=== PATIENT | female | born 1965 | race Two or more races ===

== ENCOUNTER 2025-01-28 16:33 | Emergency (ER) | payer OTHER ==
--- NOTE | 2025-01-28 17:07 | ED.PDOC ---
General HPI Comments This is a 59 year old female presenting to the ED with chief complaint of flank pain. Patient reports that she has been experiencing left sided flank pain with associated nausea and radiation of pain to her LUQ and left upper back since Saturday. Patient relays that her pain is currently an 8/10. Patient denies any vomiting, dysuria, hematuria, fever, or chills. Chief Complaint: Flank Pain Time Seen by MD: 17:04 Reviewed notes: Nurses Notes, Medications, Allergies Allergies: Coded Allergies: Penicillins (Verified Allergy, Unknown, 01/28/25) Home Meds Active Scripts Tramadol HCl (Tramadol HCl) 50 Mg Tab, 50 MG PO Q8HP PRN, #10 TAB Prov:ZHENG GAVIRIA MD 01/28/25 Ciprofloxacin Hcl (Cipro) 500 Mg Tab, 1 TAB PO BID, #14 TAB Prov:ZHENG GAVIRIA MD 01/28/25 Information Source: Patient Mode of Arrival: Ambulatory Severity: Moderate Timing: Days Duration: Since onset Prehospital treatment: None Onset: Spontaneous Symptoms: None History of: None Location: (L)Flank associated signs and symptoms: Nausea, Flank Pain Past Medical History PAST MEDICAL HISTORY: Denies Surgical History: Appendectomy 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 History Family History Family History: Reviewed,noncontributory to illness Social History Smoker: Non-Smoker Alcohol: Denies ETOH Use Drugs: Denies Drug Use Lives In: Home Constitutional: denies: chills, diaphoresis, fatigue, fever, malaise, sweats, weakness, others EENTM: denies: blurred vision, double vision, ear bleeding, ear discharge, ear drainage, ear pain, ear ringing, eye pain, eye redness, hearing loss, mouth pain, mouth swelling, nasal discharge, nose bleeding, nose congestion, nose pain, photophobia, tearing, throat pain, throat swelling, voice changes, others Respiratory: denies: cough, hemoptysis, orthopnea, SOB at rest, shortness of breath, SOB with excertion, stridor, wheezing, others Cardiovascular: denies: chest pain, dizzy spells, diaphoresis, Dyspnea on exertion, edema, irregular heart beat, left arm pain, lightheadedness, palpitations, PND, syncope, others Gastrointestinal: reports: nausea; denies: abdomen distended, abdominal pain, blood streaked bowels, constipated, diarrhea, dysphagia, difficulty swallowing, hematemesis, melena, poor appetite, poor fluid intake, rectal bleeding, rectal pain, vomiting, others Genitourinary: reports: flank pain; denies: abnormal vagina bleeding, burning, dyspareunia, dysuria, frequency, hematuria, incontinence, pain, , vagina discharge, urgency, others Neurological: denies: dizziness, fainting, headache, left sided numbness, left sided weakness, numbness, paresthesia, pre-existing deficit, right sided numbness, right sided weakness, seizure, speech problems, tingling, tremors, weakness, others Musculoskeletal: denies: back pain, gout, joint pain, joint swelling, muscle pain, muscle stiffness, neck pain, others Integumetry: denies: bruises, change in color, change in hair/nails, dryness, laceration, lesions, lumps, rash, wounds, others Allergic/Immunocompromised: denies: Difficulty Healing, Frequent Infections, Hives, Itching, others Hematologic/Lymphatic: denies: anemia, blood clots, easy bleeding, easy bruising, swollen glands, others Endocrine: denies: excessive hunger, excessive sweating, excessive thirst, excessive urination, flushing, intolerance to cold, intolerance to heat, unexplained weight gain, unexplained weight loss, others Psychiatric: denies: anxiety, bipolar disorder, depression, hopeless, panic disorder, schizophrenia, sleepless, suicidal, others All Other Systems: Reviewed and Negative Physical Exam General Appearance: Mild Distress HEENT: Normal ENT Inspection, Pharynx Normal, TMs Normal Neck: Full Range of Motion, Non-Tender, Normal, Normal Inspection Respiratory: Chest Non-Tender, Lungs Clear, No Accessory Muscle Use, No Respiratory Distress, Normal Breath Sounds Cardiovascular: No Edema, No JVD, No Murmur, No Gallop, Normal Peripheral Pulses, Regular Rate/Rhythm Breast Exam: Deferred Gastrointestinal: No Organomegaly, Non Tender, No Pulsatile Mass, Normal Bowel Sounds, Soft Genitalia: Deferred Pelvic: Deferred Rectal: Deferred Extremities: No calf tenderness, Normal capillary refill, Normal inspection, Normal range of motion, Non-tender, No pedal edema Musculoskeletal : Location: Left Extremity Location: Back Apperance: Tenderness: Mild Neurologic: Alert, treating machine operator II-XII nml as Tested, No Motor Deficits, Normal Affect, Normal Mood, No Sensory Deficits Cerebellar Function: Normal Reflexes: Normal Skin: Dry, Normal Color, Warm Lymphatic: No Adenopathy Was a procedure done? Was a procedure done?: No Differential Diagnosis Kidney stone (Female): Pyelonephritis, Urinary obstruction, Urolithiasis Urinary Problem (Female): UTI X-Ray, Labs, Meds, VS Vital Signs Date Time Temp Pulse Resp B/P (MAP) Pulse Ox O2 Delivery O2 Flow Rate FiO2 01/28/25 18:41 83 17 138/72 01/28/25 18:11 82 17 143/64 01/28/25 17:58 98.2 70 18 143/64 (90) 100 98.2 01/28/25 16:34 97.5 86 18 160/81 96 97.5 Lab Test 01/28/25 18:48 01/28/25 18:10 Range/Units Urine Color Light-yellow Yellow Urine Clarity Clear Clear Urine pH 6.5 5.0-9.0 Urine Specific [place] 1.020 1.001-1.035 Urine Protein Negative Negative Urine Ketones Negative Negative Urine Blood Trace H Negative /uL Urine Nitrite Negative Negative Urine Bilirubin Negative Negative Urine Urobilinogen Normal Negative mg/dL Urine Leukocyte Esterase 3+ Negative /uL Urine RBC 2 0 - 4 /hpf Urine Microscopic WBC 4 0-5 /HPF Urine Squamous Epithelial Cells Few <5 /hpf Urine Bacteria None seen None Seen /hpf Urine Glucose Normal Normal mg/dL White Blood Count 5.1 4.4-10.8 10^3/uL Red Blood Count 4.65 4.0-5.20 10^6/uL Hemoglobin 13.5 12.2-16.2 g/dL Hematocrit 39.3 36.0-46.0 % Mean Corpuscular Volume 84.5 80.0-100.0 fL Mean Corpuscular Hemoglobin 28.9 28.0-32.0 pg Mean Corpuscular Hemoglobin Concent 34.3 32.0-36.0 g/dL Red Cell Distribution Width 14.0 11.8-14.3 % Platelet Count 243 140-450 10^3/uL Mean Platelet Volume 7.6 6.9-10.8 fL Neutrophils (%) (Auto) 62.2 37.0-80.0 % Lymphocytes (%) (Auto) 27.5 10.0-50.0 % Monocytes (%) (Auto) 7.3 0.0-12.0 % Eosinophils (%) (Auto) 2.4 0.0-7.0 % Basophils (%) (Auto) 0.6 0.0-2.0 % Neutrophils # (Auto) 3.2 1.6-8.6 10 ^3/uL Lymphocytes # (Auto) 1.4 0.4-5.4 10 ^3/uL Monocytes # (Auto) 0.4 0-1.3 10 ^3/uL Eosinophils # (Auto) 0.1 0-0.8 10 ^3/uL Basophils # (Auto) 0 0-0.2 10 ^3/uL Nucleated Red Blood Cells 0.1 % Sodium Level 141 136-145 mmol/L Potassium Level 3.8 3.5-5.1 mmol/L Chloride Level 104 98-107 mmol/L Carbon Dioxide Level 29 20-31 mmol/L Anion Gap 8 5-15 Blood Urea Nitrogen 15 9-23 mg/dL Creatinine 1.15 H 0.550-1.02 mg/dL Glomerular Filtration Rate Calc 55 >90 mL/min BUN/Creatinine Ratio 13.0 10.0-20.0 Serum Glucose 99 74-106 mg/dL Calcium Level 9.2 8.7-10.4 mg/dL Current Medications Medications (Trade) Dose Ordered Sig/Dafne Route Start Time Stop Time Status Last Admin Ondansetron HCl (Zofran) 4 mg ONCE ONCE IV 01/28/25 17:15 01/28/25 17:16 DC 01/28/25 18:12 Sodium Chloride 1,000 ml @ 1,000 mls/hr Q1H ONCE IVB 01/28/25 17:15 01/28/25 18:14 DC 01/28/25 18:12 Morphine Sulfate 4 mg ONCE ONCE IV 01/28/25 17:15 01/28/25 17:16 DC 01/28/25 18:11 Ketorolac Tromethamine (Toradol Injection) 15 mg ONCE ONCE IV 01/28/25 17:15 01/28/25 17:16 DC 01/28/25 18:12 CT Abd/Pel indicates: Limited evaluation without contrast. No hydronephrosis/ nephrolithiasis. The patient had an IV Hep-Lock established The patient was given normal saline at 1 L bolus The patient was given morphine 4 mg IV push for the pain The patient was also given ketorolac 15 mg IV push The patient was given Zofran 4 mg IV push The creatinine is 1.15 The patient's CBC is within normal limits The urine test is positive for UTI The patient is being placed on Cipro The patient is also being placed on Ultram for the pain Images Reviewed?: Images reviewed and evaluated by me Time of 1ST Reevaluation: 20:10 Reevaluation 1ST: Unchanged Patient Education/Counseling: Diagnosis, Treatment, Prognosis Family Education/Counseling: No Family Present SEPSIS Sepsis Screen Date sepsis recognized/suspect: Jan 28, 2025 Time Sepsis recognized/suspect: 1634 Recent Procedure: No On Antibiotic Therapy: No Respiratory Rate >20: No Heart Rate >90: No Temp<36 C (96.8 F) or >38.3 C: No SBP <90 or MAP <65 mmHG: No New Acute Mental Status Change: No Is the patient on CPAP, BIPAP,: No Physician Orders Ct Ab Pel Wo Con-No Oral Or Iv (01/28/25 17:03) Heplock Iv (01/28/25 17:03) Literacy Coach (01/28/25 17:03) Blood Pressure (01/28/25 17:03) Pulse Oximetry (01/28/25 17:03) Vital Signs Date Time Temp Pulse Resp B/P (MAP) Pulse Ox O2 Delivery O2 Flow Rate FiO2 01/28/25 18:41 83 17 138/72 01/28/25 18:11 82 17 143/64 01/28/25 17:58 98.2 70 18 143/64 (90) 100 98.2 01/28/25 16:34 97.5 86 18 160/81 96 97.5 Laboratory Tests Test 01/28/25 18:10 White Blood Count 5.1 10^3/uL (4.4-10.8) Medications Medications Dose Ordered Sig/Dafne Route Start Time Stop Time Status Last Admin Dose Admin Ketorolac Tromethamine 15 mg ONCE ONCE IV 01/28/25 17:15 01/28/25 17:16 DC 01/28/25 18:12 Morphine Sulfate 4 mg ONCE ONCE IV 01/28/25 17:15 01/28/25 17:16 DC 01/28/25 18:11 Ondansetron HCl 4 mg ONCE ONCE IV 01/28/25 17:15 01/28/25 17:16 DC 01/28/25 18:12 Sodium Chloride 1,000 ml @ 1,000 mls/hr Q1H ONCE IVB 01/28/25 17:15 01/28/25 18:14 DC 01/28/25 18:12 Departure 1 Departure Time of Disposition: 20:08 Impression: Primary Impression: UTI (urinary tract infection) Qualified Codes: N30.00 - Acute cystitis without hematuria Additional Impression: Flank pain Qualified Codes: R10.A2 - Flank pain, left side Disposition: HOME / SELF CARE / HOMELESS Condition: Fair e-Prescriptions Tramadol HCl (Tramadol HCl) 50 Mg Tab 50 MG PO Q8HP PRN, #10 TAB Prov: ZHENG GAVIRIA MD 01/28/25 Ciprofloxacin Hcl (Cipro) 500 Mg Tab 1 TAB PO BID, #14 TAB Prov: ZHENG GAVIRIA MD 01/28/25 Discharged With: Self Critical Care Note Critical Care Time?: No Stability Stability form required: No Heart Score Heart Score: Heart Score Response (Comments) Value History N/A 0 EKG N/A 0 Age N/A 0 Risk Factors N/A 0 Troponin N/A 0 Total 0 I personally scribed for ZHENG GAVIRIA MD ([email or web address]) on 01/28/25 at 17:07. Electronically submitted by Stef Mendez ([email or web address]). I personally scribed for ZHENG GAVIRIA MD ([email or web address]) on 01/28/25 at 18:10. Electronically submitted by Stef Mendez ([email or web address]). ZHENG GAVIRIA MD Jan 28, 2025 17:07
--- NOTE | 2025-01-28 18:08 | DVH ---
Indication: left flank pain Technique: CT axial images of the abdomen and pelvis are obtained without contrast. Coronal and sagit mak reformats were obtained. Radiation Dose Information: CTDI volume is 16.71 mGy. Dose-length product is 822.33 mGy*cm Comparison: None FINDINGS: There is limited interpretation of the abdomen and pelvis without administration of intravenous contr ast. Lung bases demonstrate no pleural effusion. Borderline cardiomegaly Adrenal glands, spleen, pancreas and liver unremarkable in shape. No CT evidence for cholelithiasis. No hydronephrosis /nephrolithiasis. Stomach partially distended. Small bowel loops are normal in caliber. Moderate volume stool in the colon. There are no secondary signs for appendicitis. Bladder partially distended. No free pelvic fluid. No inguinal lymphadenopathy. No aggressive osseous process. [id number] thoracolumbar degenerative disc disease. IMPRESSION: Limited evaluation without contrast. No hydronephrosis/ nephrolithiasis.
[2025-01-28] MEDS: MORPHINE SULFATE 4 MG/ML SYR/VIAL IV ONE (18:11)
[2025-01-28] MEDS: KETOROLAC TROMETH 30 MG/ML 1ML VIAL IV ONE (18:12)
[2025-01-28] MEDS: ONDANSETRON HCL 4 MG/2 ML VIAL IV ONE (18:12)
[2025-01-28] MEDS: SODIUM CHLORIDE 0.9% 1,000 ML IVB ONE (18:12)
[2025-01-28 18:29] LABS: Hematocrit 39.3 % (36.0-46.0); Hemoglobin 13.5 g/dL (12.2-16.2); Mean Corpuscular Hemoglobin 28.9 pg (28.0-32.0); Mean Corpuscular Volume 84.5 fL (80.0-100.0); Nucleated Red Blood Cells % 0.1 %
[2025-01-28 18:38] LABS: Chloride 104 mmol/L (98-107); Potassium 3.8 mmol/L (3.5-5.1); Sodium 141 mmol/L (136-145)
[2025-01-28 18:39] LABS: Anion Gap 8 (5-15); Calcium 9.2 mg/dL (8.7-10.4); Carbon Dioxide 29 mmol/L (20-31)
[2025-01-28 18:44] LABS: Glucose 99 mg/dL (74-106)
[2025-01-28 18:45] LABS: BUN/Creatinine Ratio 13.0 (10.0-20.0); Blood Urea Nitrogen 15 mg/dL (9-23)
[2025-01-28 19:53] LABS: Urine Protein, UAD Negative (Negative)
[2025-01-28] MEDS ORDERED: TRAM-626 PO (20:07)
[2025-01-28] MEDS ORDERED: CIPR-173 PO (20:07)
[2025-01-28 20:48] VITALS: BP 151/76; PULSE 67; RESP 18; TEMP 97.9; O2SAT 97
== END 2025-01-28 20:08 | disposition home or self-care (01) ==
LOC: ER 16:33
DX: N39.0 Urinary tract infection, site not specified (principal); R10.A2 Flank pain, left side; R10.32 Left lower quadrant pain; Z90.49 Acquired absence of other specified parts of digestive tract; Z88.0 Allergy status to penicillin; Z79.899 Other long term (current) drug therapy
CPT/HCPCS: 36415; 74176; 80048; 81001; 85025; 96361; 96374; 96375; 99285; J1885; J2270; J2405; J7030